=== PATIENT | male | born 1960 | race Caucasian/White ===

== ENCOUNTER 2024-06-03 09:31 | Emergency (ER) | payer MEDICARE, MEDICAID ==
[~2024-06-03] VITALS: Ht 188 cm; Wt 92.3 kg
[~2024-06-03 09:31] MED LIST: ASPI-1397 PO; ATOR40TA72 PO; DULO60CA65 PO; FENO160T PO; METF-438 PO
[2024-06-03 11:20] LABS: BASOPHILS % (AUTO) 0.5 % (0-1); EOSINOPHILS % (AUTO) 0.5 % (0-6); HEMATOCRIT 45.5 % (42.0-52.0); HEMOGLOBIN 15.7 g/dl (14.0-17.9); LYMPHOCYTES # (AUTO) 1.9 X10'3 (1.1-4.8); LYMPHOCYTES % (AUTO) 29.1 % (21-51); MEAN CORPUSCULAR HEMOGLOBIN 29.6 PG (27.0-31.0); MEAN CORPUSCULAR HGB CONC 34.6 g/dL (33.0-36.5); MEAN CORPUSCULAR VOLUME 85.7 FL (78-98); MEAN PLATELET VOLUME 8.2 FL (7.4-10.4); MONOCYTES # (AUTO) 0.6 X10'3 (0-0.9); MONOCYTES % (AUTO) 8.6 % (2-12); NEUTROPHILS # (AUTO) 4.1 X10'3 (1.8-7.7); NEUTROPHILS % (AUTO) 61.3 % (42-75); PLATELET COUNT 214 X10'3 (140-440); RED BLOOD COUNT 5.31 X10'6 (4.70-6.10); RED CELL DISTRIBUTION WIDTH 12.7 % (11.5-14.5); WHITE BLOOD COUNT 6.7 X10'3 (4.5-11.0)
[2024-06-03 11:39] LABS: ALBUMIN 3.3 G/DL (3.4-5.0); ANION GAP 8 (8-16); BLOOD UREA NITROGEN 14 MG/DL (7-18); BUN/CREATININE RATIO 18.4 (10.0-20.0); CALCIUM 8.6 MG/DL (8.5-10.1); CHLORIDE 104 MMOL/L (99-107); CREATININE 0.76 MG/DL (0.60-1.10); GLUCOSE 216 MG/DL (70-104); POTASSIUM 3.6 MMOL/L (3.5-5.1); SODIUM 140 MMOL/L (135-145); TOTAL CARBON DIOXIDE 28.3 MMOL/L (24-32); eCRCL 113 ML/MIN; eGFR > 90 ML/MIN
[2024-06-03] MEDS ORDERED: RIVA10TA PO (16:13)
[2024-06-03 16:35] VITALS: BP 130/74; PULSE 85; RESP 15; TEMP 97.9; O2SAT 99
== END 2024-06-03 16:37 | disposition home or self-care (01) ==
LOC: ER 09:31
DX: F17.210 Nicotine dependence, cigarettes, uncomplicated (principal); E11.51 Type 2 diabetes mellitus with diabetic peripheral angiopathy without gangrene; E11.621 Type 2 diabetes mellitus with foot ulcer; L97.529 Non-pressure chronic ulcer of other part of left foot with unspecified severity; L97.519 Non-pressure chronic ulcer of other part of right foot with unspecified severity; Z98.890 Other specified postprocedural states; Z79.82 Long term (current) use of aspirin
CPT/HCPCS: 36415; 73660; 80048; 84145; 85025; 93005; 93925; 99285; A6223

== ENCOUNTER 2024-07-19 10:26 | Day surgery (SDC) | payer MEDICARE, MEDICAID ==
[2024-07-14 15:38] LABS: BASOPHILS # (AUTO) 0.1 X10'3 (0-0.2); BASOPHILS % (AUTO) 1.1 % (0-1); EOSINOPHILS # (AUTO) 0.2 X10'3 (0-0.9); EOSINOPHILS % (AUTO) 1.9 % (0-6); LYMPHOCYTES # (AUTO) 3.1 X10'3 (1.1-4.8); LYMPHOCYTES % (AUTO) 34.4 % (21-51); MEAN CORPUSCULAR HEMOGLOBIN 28.7 PG (27.0-31.0); MEAN CORPUSCULAR HGB CONC 33.8 g/dL (33.0-36.5); MEAN PLATELET VOLUME 7.5 FL (7.4-10.4); MONOCYTES # (AUTO) 0.9 X10'3 (0-0.9); MONOCYTES % (AUTO) 9.6 % (2-12); NEUTROPHILS # (AUTO) 4.8 X10'3 (1.8-7.7); PRE OP HEMOGLOBIN 13.8 g/dL (14.0-17.9); PRE OP PLATELET COUNT 326 X10'3 (140-440); PRE OP WHITE BLOOD COUNT 9.1 10'3 (4.8-10.8); RED BLOOD COUNT 4.82 X10'6 (4.70-6.10); RED CELL DISTRIBUTION WIDTH 12.9 % (11.5-14.5)
[2024-07-14 16:03] LABS: ALBUMIN/GLOBULIN RATIO 0.7 (1.1-1.5); ALKALINE PHOSPHATASE 108 IU/L (46-116); BLOOD UREA NITROGEN 13 MG/DL (7-18); BUN/CREATININE RATIO 15.1 (10.0-20.0); CALCIUM 8.8 MG/DL (8.5-10.1); CHLORIDE 102 MMOL/L (99-107); CREATININE 0.86 MG/DL (0.60-1.10); PRE OP ALT 19 U/L (30-65); PRE OP ANION GAP 5 (8-16); PRE OP AST 7 U/L (10-37); PRE OP BILIRUB, TOTAL 0.4 MG/DL (0.0-1.0); PRE OP GLUCOSE 147 MG/DL (70-104); PRE OP POTASSIUM 4.2 MMOL/L (3.4-5.1); PRE OP SODIUM 139 MMOL/L (135-145); TOTAL CARBON DIOXIDE 31.6 MMOL/L (24-32); TOTAL PROTEIN 7.3 G/DL (6.4-8.2); eGFR 89 ML/MIN
[~2024-07-19] VITALS: Ht 188 cm; Wt 100.6 kg
[2024-07-19] VITALS (10 sets, daily range): BP systolic 110–149; BP diastolic 55–87; PULSE 65–111; RESP 12–21; TEMP 97.9–98.1; O2SAT 98–100
[2024-07-19] MEDS: ceFAZolin 2gm in dextrose, iso 50 ML IV ONE (05:30)
[~2024-07-19 10:26] MED LIST changes: -DULO60CA65 PO; +LEVO750T68 PO; +RIVA10TA PO; +VANCOMYCIN 1,500MG inj. 1,500 MG in normal saline 500ml IV soln 300 ML IV ONE
[2024-07-19] MEDS: ringers solution, lacted 1,000 ML IV SCH (11:36)
[2024-07-19] MEDS: famotidine 20mg tablet PO ONE (11:36)
[2024-07-19] MEDS ORDERED: BUPIVAcaine 2.5mg/ml inj 50ml vial (contains preservative) ONE (12:46)
[2024-07-19] MEDS ORDERED: fentaNYL/PF 50MCG/1 ML 2ML syringe ONE (13:10)
[2024-07-19] MEDS ORDERED: midazolam 1 mg/ML 2ml injection ONE (13:11)
[2024-07-19] MEDS ORDERED: propofol inj 20 ML IV ONE (13:13)
[2024-07-19] MEDS ORDERED: LIDOcaine 1%/PF 5ML 10 MG/ML VIAL ONE (13:13)
[2024-07-19] MEDS ORDERED: insulin regular, human U-100 10ml vial - multi-dose IV ONE (13:15)
[2024-07-19] MEDS ORDERED: sevoflurane 250ml liquid IH ONE (13:17)
[2024-07-19] MEDS ORDERED: ondansetron/PF 4mg/2ml inj IV PRN (13:20)
[2024-07-19] MEDS ORDERED: enalaprilat 1.25mg/ml 2ml vial IV PRN (13:20)
[2024-07-19] MEDS ORDERED: morphine 4 MG/ML inj SYRINge IV PRN (13:20)
[2024-07-19] MEDS ORDERED: labetalol 20mg/4ml (5mg/ml) syringe IV PRN (13:20)
[2024-07-19] MEDS ORDERED: fentaNYL/PF 50MCG/1 ML 2ML syringe IV ONE (13:20)
[2024-07-19] MEDS ORDERED: proCHLORperazine 10 MG/2 ml inj IV PRN (13:20)
[2024-07-19] MEDS ORDERED: meperidine/PF 25mg/ml syringe IV PRN ×3 (13:20)
[2024-07-19] MEDS ORDERED: ringers solution, lacted 1,000 ML IV SCH (13:20)
[2024-07-19] MEDS ORDERED: morphine 2 MG/ML inj. syringe IV PRN (13:20)
[2024-07-19] MEDS: VANCOMYCIN/WATER FOR INJ (PEG) 1.5GM/300 ML IVPB IV ONE (13:24)
[2024-07-19] MEDS: insulin regular, human 10 units/0.1 ml syringe IV ONE (13:24)
[2024-07-19] MEDS ORDERED: vancomycin 1,000mg inj ONE (13:51)
== END 2024-07-19 16:25 | disposition home or self-care (01) ==
LOC: PAS 10:26
PROVIDERS: ATTEND Orthopaedic Surgery Orthopaedic Trauma
DX: E11.69 Type 2 diabetes mellitus with other specified complication (principal); M86.8X7 Other osteomyelitis, ankle and foot; I10 Essential (primary) hypertension; E78.5 Hyperlipidemia, unspecified; E11.51 Type 2 diabetes mellitus with diabetic peripheral angiopathy without gangrene; E11.40 Type 2 diabetes mellitus with diabetic neuropathy, unspecified; Z79.899 Other long term (current) drug therapy; Z98.890 Other specified postprocedural states
CPT/HCPCS: 28820; 36415; 80053; 82948; 85025; 87070; 87075; A4618; A6222; A6446; A6449; A7000; J0690; J1815; J2250; J2704; J3010; J3370; J3372; J3490; J7030; J7120; Z7506; Z7512; Z7610; 87077; 87186